=== PATIENT | male | born 1980 | race Two or more races ===

== ENCOUNTER 2019-12-11 11:42 | Outpatient (CLI) | payer OTHER ==
--- NOTE | 2019-12-11 13:11 | XRAY Report ---
Reason: LT SHOULDER PAIN Procedure Date: 12/11/2019 Accession Number: [id number] / [id number] Procedure: FL - Arthrogram Needle Placement CPT Code: Final Report FULL RESULT: EXAM: LEFT SHOULDER ARTHROGRAPHIC INJECTION WITH FLUOROSCOPIC GUIDANCE EXAM DATE: 12/11/2019 12:58 PM. CLINICAL HISTORY: Left shoulder pain. COMPARISON: ARTHROGRAM SHOULDER LT 12/11/2019 12:04 PM. TECHNIQUE: The risks, benefits, and alternatives of the procedure were discussed with the patient. All questions were answered. Written and verbal consent were obtained. The glenohumeral joint was marked under fluoroscopy and prepped and draped in a sterile manner. Local anesthesia was performed with 1% lidocaine. A 22-gauge needle was then inserted into the glenohumeral joint. 10 mL of a solution containing 25% 1% lidocaine, 25% iodinated contrast, and a 1:200 dilution of gadolinium contrast in sterile saline was then injected. The needle was removed without immediate complication. Other: None. Fluoroscopy Time: 0.1 minutes. Number of Images: 11. FINDINGS: Bones and joints: No fracture or subluxation. Injection: Fluoroscopic images demonstrate needle placement and contrast in the glenohumeral joint. No contrast extravasation outside of the glenohumeral joint. IMPRESSION: Successful fluoroscopically guided arthrographic injection of the shoulder. RADIA
--- NOTE | 2019-12-11 14:05 | MRI Report ---
Reason: LT SHOULDER PAIN Procedure Date: 12/11/2019 Accession Number: [id number] / [id number] Procedure: MRI - Arthrogram Shoulder LT CPT Code: Final Report FULL RESULT: EXAM: LEFT SHOULDER MRI ARTHROGRAM WITH CONTRAST EXAM DATE: 12/11/2019 01:26 PM. CLINICAL HISTORY: Left shoulder pain. COMPARISON: None. TECHNIQUE: Multiplanar, multisequence T1-weighted and fluid-sensitive sequences of the shoulder after an arthrographic injection of dilute gadolinium, dictated under a separate exam. Other: None. FINDINGS: Acromioclavicular Region: The acromion is type II. The acromioclavicular joint is unremarkable. The coracoacromial and coracoclavicular ligaments are intact. Small amount of fluid within the subacromial subdeltoid bursa. Glenohumeral Region: No subluxation. No loose bodies. The articular cartilage is unremarkable. The glenohumeral ligaments and joint capsule are unremarkable. Bone Marrow: No fracture, marrow edema or bone lesions. Labrum: Contrast extends laterally into the substance of the superior labrum at the level of the biceps anchor, without extending posterior to the level of the biceps anchor. The inferior glenohumeral ligament-labral complex is normal. Biceps Tendon: There is attenuation of the long head biceps tendon, with contrast extending into the substance of the biceps tendon adjacent to the biceps anchor (series 801 image 11 through 14). The extra articular biceps tendon is normal. Musculature/Rotator Cuff: The subscapularis, supraspinatus, infraspinatus, and teres minor tendons are intact. Contrast within the subscapularis tendon is likely iatrogenic. No edema or fatty atrophy. Other: The subcutaneous tissues are unremarkable. IMPRESSION: 1. Partial tear of the intra-articular long head biceps tendon extending to the level of the biceps anchor, with adjacent tearing of the superior labrum at the biceps anchor but no extension posteriorly. 2. Intact rotator cuff tendons. 3. Mild subacromial-subdeltoid bursitis. RADIA
== END 2019-12-11 11:43 | disposition home or self-care (01) ==
LOC: DI 11:42
DX: S46.112A Strain of muscle, fascia and tendon of long head of biceps, left arm, initial encounter (principal); S43.432A Superior glenoid labrum lesion of left shoulder, initial encounter; M75.52 Bursitis of left shoulder
CPT/HCPCS: 23350; 73222; 77002; A9585; Q9961

== ENCOUNTER 2020-01-23 11:03 | Day surgery (SDC) | payer OTHER ==
[~2020-01-23 11:03] MED LIST: BUPIVACAINE 0.25% PF 30 ML VIAL ONE; EPINEPHrine 1 MG/ML AMP ONE
[2020-01-23] MEDS ORDERED: LACTATED RINGERS 1,000 ML IV ONE (11:10)
[2020-01-23] MEDS ORDERED: ROPIVACAINE 0.5% PF 20 ML AMPULE ONE (11:23)
[2020-01-23] MEDS ORDERED: GABAPENTIN 400 MG CAPSULE ONE (11:25)
[2020-01-23] MEDS ORDERED: CELECOXIB 100 MG CAPSULE PO ONE (11:25)
[2020-01-23] MEDS ORDERED: ACETAMINOPHEN 1,000 MG/100 ML 100 ML IV ONE ×2 (11:25→13:05)
[2020-01-23] MEDS ORDERED: cefTRIAXone 2 GM VIAL ONE (11:26)
--- NOTE | 2020-01-23 11:54 | ANESTHESIA ---
Pre-Anesthesia VS, & Labs - Diagnosis left should slap tear - Procedure left shoulder arthroscopy Vital Signs: Temp Pulse Resp BP Pulse Ox 36.6 C 67 16 133/94 H 99 01/23/20 11:10 01/23/20 11:10 01/23/20 11:10 01/23/20 11:10 01/23/20 11:10 Height 5 ft 7 in Weight (kg) 74.84 kg - NPO >8 hours Home Medications and Allergies Home Medications: Ambulatory Orders Ibuprofen [Motrin] 600 mg PO Q6H PRN 01/19/20 Sildenafil Citrate 50 mg PO 01/19/20 ZOLMitriptan [Zolmitriptan Odt] 5 mg PO 01/19/20 Ibuprofen [Motrin] 600 mg PO Q6H PRN 01/19/20 Sildenafil Citrate 50 mg PO 01/19/20 ZOLMitriptan [Zolmitriptan Odt] 5 mg PO 01/19/20 Allergies/Adverse Reactions: Allergies Allergy/AdvReac Type Severity Reaction Status Date / Time No Known Drug Allergies Allergy Verified 01/19/20 14:08 Anes History & Medical History - Anesthetic History Anesthesia Complications: reports: No previous complications (no previous anesthetic history) Family history of Anesthesia Complications: Denies Family history of Malignant Hyperthermia: Denies - Medical History Cardiovascular: reports: None Pulmonary: reports: None Gastrointestinal: reports: GERD Urinary: reports: Other Neuro: reports: None Musculoskeletal: reports: Other Endocrine/Autoimmune: reports: None Blood Disorders: reports: None Skin: reports: None Smoking Status: Never smoker Psychosocial: reports: No issues indicated Exam General: Alert, Oriented x3, Cooperative, No acute distress Dental: WNL Mouth Openin Fingerbreadth Neck Mobility: Normal Mallampati classification: II Thyromental Distance: 4-6 cm Respiratory: Lungs clear, Normal breath sounds, No respiratory distress, No accessory muscle use Cardiovascular: Regular rate, Normal S1, Normal S2, No murmurs Abdomen: Normal bowel sounds, Soft, No tenderness, No hepatospenomegaly, No masses Extremities: No clubbing, No cyanosis, No edema, Normal pulses, No tenderness/swelling Neurological: Normal gait, Normal speech, Strength at 5/5 X4 ext, Normal tone, Sensation intact, Cranial nerves 3-12 NL, Reflexes 2+ Mental/Cognitive Status: Alert/Oriented X3, Normal for patient Cognitive Status: Within normal limits Plan Anesthesia Type: General Regional Block: Per Surgeon's request for Post Op pain control Consent for Procedure(s) Verified and Reviewed: Yes Code Status: Attempt Resuscitation ASA classification: 1-Healthy patient Is this case an emergency?: No
[2020-01-23] MEDS ORDERED: ROCURONIUM 50 MG/5 ML VIAL IVP ONE (13:05)
[2020-01-23] MEDS ORDERED: GLYCOPYRROLATE 1 MG/5 ML VIAL IVP ONE (13:05)
[2020-01-23] MEDS ORDERED: ePHEDrine 50 MG/ML VIAL IVP ONE (13:05)
[2020-01-23] MEDS ORDERED: DEXAMETHASONE 4 MG/ML VIAL IVP ONE (13:05)
[2020-01-23] MEDS ORDERED: ONDANSETRON 4 MG/2 ML VIAL IVP ONE (13:05)
[2020-01-23] MEDS ORDERED: PHENYLEPHRINE 50 MG/5 ML VIAL IV ONE (13:05)
[2020-01-23] MEDS ORDERED: PROPOFOL 200 MG/20 ML VIAL IVP ONE (13:05)
[2020-01-23] MEDS ORDERED: LIDOCAINE-MPF 2% 5 ML VIAL IM ONE (13:05)
[2020-01-23] MEDS ORDERED: MIDAZOLAM 2 MG/2 ML VIAL IVP ONE (13:05)
[2020-01-23] MEDS ORDERED: NEOSTIGMINE 1 MG/1 ML 10 ML MDV IVP ONE (13:05)
[2020-01-23] MEDS ORDERED: KETOROLAC 30 MG/ML VIAL IVP ONE (13:05)
[2020-01-23] MEDS ORDERED: BUPIVACAINE 0.25% PF 30 ML VIAL SUBQ ONE (13:58)
[2020-01-23] MEDS ORDERED: oxyCODONE 5 MG TABLET PO PRN (16:53)
[2020-01-23] MEDS ORDERED: ONDANSETRON 4 MG/2 ML VIAL IVP PRN (16:53)
[2020-01-23] MEDS: fentaNYL 100 MCG/2 ML VIAL ONE ×2 (16:54→17:00)
--- NOTE | 2020-01-23 17:08 | OPERATIVE REPORT ---
Operative Report - General Procedure Date: 01/23/20 - Procedure Note Estimated Blood Loss (mL): 50 - Other Other Information/Narrative: Date of Procedure: January 23, 2020 Planned Procedure: Left shoulder arthroscopy, open distal clavicle excision, open biceps tenodesis Pre-op diagnosis: Left acromioclavicular joint arthritis, biceps tendinitis Procedure performed: Left shoulder arthroscopy, open distal clavicle excision, open biceps tenodesis Post-op diagnosis: Left acromioclavicular joint arthritis, biceps tendon Primary Surgeon: MARY PEREZ Secondary Surgeon: Anesthesia: General with regional block EBL: 50 ml IMPLANTS: Arthrex fiber tack x1 POSTOPERATIVE PLAN: 0-2 weeks-Sling at all times. Pendulum exercises 5 times per day. 2-6 weeks-Passive and active range of motion of the shoulder to 90 degrees. 6-12 weeks-Gradually increase strengthening focusing on rotator cuff and scapular stabilizers per protocol. At 6 weeks okay to start gentle band work with biceps, at 8 weeks may start formal strengthening. 16 weeks and beyond-Introduce dynamic activities. EXAMINATION UNDER ANESTHESIA: ROM: FF 175, AB 170 Anterior load and shift: 1+ Posterior load and shift: 1+ ARTHROSCOPIC FINDINGS: Rotator interval: Mild synovitis Biceps tendon & SLAP: Biceps tendinitis with thickening of the tendon, there is a type II SLAP tear at the biceps anchor, and the biceps anchor was unstable. 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 MRI and exam were consistent with bicipital tendinitis and acromioclavicular joint arthritis. Nonoperative managment failed to resolve symptoms. The risks, benefits, and alternatives were discussed. Risks included pain, bleeding, infection, damage to nearby structures, lack of symptom relief, implant complications, stiffness, need for further surgeries, DVT, PE, stroke, and even . He signed a written consent form. PROCEDURE IN DETAIL: The patient was met in the preoperative holding on the day of the procedure. Operative extremity was signed. Consent was verified. They desired to proceed. Regional anesthesia was obtained in the preoperative area. They were brought to the operating room and surrendered to anesthesia. Once general anesthesia was obtained they were placed in the beach chair position. A padded kidney pad was placed. The head was secured with the neck in a neutral position. A surgical timeout was held to confirm the patient procedure, identity, procedure, laterality, allergies, images, and antibiotics. All were in agreement we proceeded. A standard diagnostic arthroscopy was performed utilizing posterior and anterosuperior portals. The anterosuperior portal was created under direct visualization and localized with a spinal needle. A cannula was placed anteriorly. The findings of the diagnostic arthroscopy can be found above. Following the diagnostic arthroscopy, the arthroscopic fluid was drained from the shoulder and we turned our attention to the open distal clavicle excision. An 18-gauge needle was used to localize the acromioclavicular joint, and then an incision was marked out on the skin. A 5 cm incision was made in line with the clavicle, centered over the acromioclavicular joint. Electrocautery was used to obtain hemostasis. Full-thickness skin flaps were made at the level of the fascia/joint capsule. Bovie electrocautery was then used to make a full- thickness longitudinal incision through the periosteum and overlying joint capsule, opening the joint. Bovie electrocautery was used to dissect the joint capsule from the bony surfaces followed by a joiner elevator. 2 Homans were placed around the distal clavicle. A rongeur was used to debride the intra-articular disc. A trapezoidal resection was measured and performed with a sagittal saw. Care was taken to ensure this cut was parallel to the joint surface. The resected piece measured approximately 6 mm in width anteriorly and 8 mm in width posteriorly. All sharp bony edges were rounded with a rasp or a rongeur. A finger was placed with into the defect and the arm was adducted fully without any impingement in the joint. The joint was then irrigated copiously. A watertight capsular and fascial closure was performed with 0 Vicryl. We then turned our attention to the biceps tenodesis. A 5 cm incision was made near the axillary fold centered over the pectoralis major tendon. Electrocautery was used to obtain hemostasis. The fascia was opened with dissection scissors. Blunt digital dissection was used to identify the intertubercular groove just under the pectoralis major tendon. The long head of the biceps tendon was visualized within this interval. The short head of the biceps was retracted with my finger and the right angle was used to deliver the tendon of the long head of the biceps out of the wound. A joiner elevator was then used to debride all synovial tissue from the intertubercular groove. A fibertack was placed high within the groove. Both limbs of the fibertack were pulled on and it was well fixed. I then whipstitched the biceps tendon starting 2 cm proximal to the musculotendinous junction down to the musculotendinous junction and back up to the same 2 cm location with a single limb of the suture tack. The other suture was placed once through the tendon at the 2 cm location. I then cut all excess tendon off. The suture limb that was passed the single time was then pulled on and this reduced the tendon nicely into the groove. The elbow was fully straightened and there was no excess tension on the repair site. I then tied 7 reverse half hitches alternating to secure the tendon in its place. The wound was then irrigated copiously. The portal sites were then closed with 3-0 Monocryl buried. The open incision were closed with 2-0 Vicryl in the dermis and a running 3-0 Monocryl in the skin. Mastisol and Steri-Strips were applied. 10 mL's of quarter percent Marcaine plain was injected around the biceps incision. A sterile dressing and a sling was applied. The patient was awakened and transferred to the recovery room.
[2020-01-23] MEDS ORDERED: oxyCODONE 5 MG TABLET ONE (17:28)
[2020-01-23 18:11] VITALS: BP 139/102
== END 2020-01-23 11:04 | disposition home or self-care (01) ==
LOC: SDS 11:03
PROVIDERS: ATTEND Orthopaedic Surgery
DX: M19.012 Primary osteoarthritis, left shoulder (principal); M75.22 Bicipital tendinitis, left shoulder; S43.432A Superior glenoid labrum lesion of left shoulder, initial encounter